=== PATIENT | female | born 1975 | race African-American/Black ===

== ENCOUNTER 2016-06-25 22:57 | Emergency (ER) | payer MEDICAID ==
[~2016-06-25] VITALS: Ht 152.4 cm; Wt 66.0 kg
[~2016-06-25 22:57] MED LIST: ALDA2525 PO; BUTA1CAP PO; CYPR4TAB PO; IMIT25TA PO; MOBI7.5T PO; OXYC1CAP PO
[2016-06-25 23:00] VITALS: BP 172/105; PULSE 68; RESP 16; TEMP 97.9; O2SAT 100
--- NOTE | 2016-06-25 23:41 | PD ---
HPI Chief Complaint: Injury Time Seen by Provider: 23:38 Travel History International Travel<30 days: No Contact w/Intl Traveler<30days: No Traveled to known affect area: No History of Present Illness HPI 41-year-old black female presents to emergency department with complaints of right foot pain after dropping a bag of candy is on her foot on . She states that she's been having persistent pain in the lateral forefoot. She denies any numbness, tingling or weakness. Pain is mild to moderate. Worse with weightbearing. Some relief with elevation. No other injury. PFSH Past Medical History Arthritis: No Asthma: No Autoimmune Disease: No Blood Disorders: No Anxiety: Yes Depression: Yes Heart Rhythm Problems: No Cancer: No Cardiovascular Problems: No High Cholesterol: No Chemotherapy: No Chest Pain: No Congestive Heart Failure: No COPD: No Cerebrovascular Accident: No Diabetes: No Diminished Hearing: No Endocrine: No GERD: Yes Glaucoma: No Genitourinary: No Headaches: Yes Hepatitis: No Hiatal Hernia: No Hypertension: Yes Kidney Stones: No Musculoskeletal: No Neurologic: No Psychiatric: Yes Reproductive: Yes Respiratory: No Migraines: Yes Myocardial Infarction: No Radiation Therapy: No Renal Failure: No Seizures: Yes Sickle Cell Disease: No Sleep Apnea: No Thyroid Disease: No Ulcer: No Tetanus Vaccination: < 5 Years ?: Not LMP: 06/21/16 : 5 Para: 3 Miscarriage: 1 : 0 Ovarian Cysts: Yes (SX MAR 2013) Past Surgical History Abdominal Surgery: No AICD: No Cardiac Surgery: No Section: Yes (X 1 (STILLBORN)) Ear Surgery: No Endocrine Surgery: No Eye Surgery: No Genitourinary Surgery: No Gynecologic Surgery: No Oral Surgery: No Pacemaker: No Thoracic Surgery: No Other Surgery: Yes () Social History Alcohol Use: No Tobacco Use: No Substance Use: No Allergies-Medications (Allergen,Severity, Reaction): Coded Allergies: Penicillin (Verified Adverse Reaction, Severe, NAUSEA, VOMITING - NO RASH , ITCHING OR SOB, 06/25/16) Reported Meds & Prescriptions Reported Meds & Active Scripts Active Diclofenac Sodium DR (Diclofenac Sodium) 75 Mg Tabdr 75 Mg PO BID Reported Oxycodone (Oxycodone HCl) Unknown Strength Cap Unknown Dose PO Q4H PRN Imitrex (Sumatriptan Succinate) 25 Mg Tab 25 Mg PO ONCE PRN If a satisfactory response has not been obtained at 2 hours, a second dose may be administered Cyproheptadine (Cyproheptadine HCl) 4 Mg Tab 4 Mg PO Q12HR Aldactazide (HCTZ/Spironolactone) 25-25 Mg Tab 1 Tab PO DAILY Fioricet (Ptkhlxnsdb-Ilowsotvmwmlj-Ttccvdpt) 50-300-40 Mg Cap 1 Cap PO Q6HR PRN Mobic (Meloxicam) Unknown Strength Tab Unknown Dose PO DAILY Review of Systems Except as stated in HPI: all other systems reviewed are Neg General / Constitutional: No: Fever, Chills HENT: No: Headaches, Sore Throat, Neck Pain Cardiovascular: No: Chest Pain or Discomfort, Palpitations Respiratory: No: Cough, Shortness of Breath Gastrointestinal: No: Nausea, Vomiting Musculoskeletal: Positive: Edema, Pain, No: Limited ROM Skin: No Rash, No Dryness Neurologic: No: Dizziness, Paresthesia Physical Exam Narrative GENERAL: This is a well-nourished, well-developed patient, in no apparent distress. SKIN: No rashes, ecchymoses or lesions. Warm and dry. HEAD: Atraumatic. Normocephalic. EYES: PERRL, EOMI, no discharge or injection. No scleral icterus. EARS: Clear NOSE: Nasal turbinates appear normal. THROAT: Mucosa pink and moist. Airway patent. NECK: Trachea midline. supple, moves head freely. LUNGS: Clear to auscultation. CV: Regular in rhythm. ABDOMEN: Soft nontender. EXT: No clubbing cyanosis or edema. Examination of the right lower extremity reveals pain along the fourth and fifth metatarsal. There is no edema, erythema or warmth. The skin is intact. No ecchymosis. She has intact sensation with good distal pulses. No pain in the toes, heel, Achilles or ankle. She ambulates with a normal gait. Data Data Last Documented VS Vital Signs Date Time Temp Pulse Resp B/P Pulse Ox O2 Delivery O2 Flow Rate FiO2 06/25/16 23:00 97.9 68 16 172/105 100 Orders Foot, Complete ([id number]) (06/25/16 23:37) MDM Medical Decision Making Medical Screen Exam Complete: Yes Emergency Medical Condition: Yes Medical Record Reviewed: Yes Interpretation(s) Right foot: Negative for acute fracture. Differential Diagnosis MDM: High Differential diagnoses: Fracture, sprain, strain, dislocation, contusion, neurovascular injury Narrative Course X-ray is negative for bony injury. This is right foot contusion Diagnosis Primary Impression: Contusion of right foot Qualified Code: S90.31XA - Contusion of right foot, initial encounter Patient Instructions: General Instructions Additional Instructions: Rest. Elevation. Ice packs for the next 3 days. Diclofenac. weight-bearing as tolerated. Follow-up with an orthopedist or your doctor in one week. Return to the ER if any problems Med/Other Pt SpecificInfo: Prescription(s) given Scripts Diclofenac Sodium DR 75 Mg Tabdr75 Mg PO BID #20 TAB Prov:Koki Smyth MD 06/25/16 Disposition: 01 DISCHARGE HOME Condition: Stable Jesu Tobin June 25, 2016 23:41
[2016-06-25] MEDS ORDERED: DICL75TA PO (23:42)
--- NOTE | 2016-06-25 23:54 | RADRPT ---
EXAM DATE/TIME: 06/25/2016 23:35 [facility] COMPARISON: FOOT RIGHT COMPLETE ([id number]), April 13, 2012, 22:41. INDICATIONS : Right foot pain. MEDICAL HISTORY : None. SURGICAL HISTORY : None. ENCOUNTER: Initial ACUITY: 1 day PAIN SCORE: 4/10 LOCATION: Right foot. FINDINGS: Three view examination of the right foot demonstrates no soft tissue swelling, dislocation, or fractu re. The tarsal bones appear intact. The interphalangeal and metatarsophalangeal joints are intact. The calcaneus is intact. Bony mineralization is normal. CONCLUSION: Unremarkable exam with no evidence of fracture or malalignment. Pepe Gaxiola MD on June 25, 2016 at 23:52 Board Certified Radiologist. This report was verified electronically.
== END 2016-06-26 00:12 | disposition home or self-care (01) ==
LOC: NEPK 22:57
DX: S90.31XA Contusion of right foot, initial encounter (principal); I10 Essential (primary) hypertension; W20.8XXA Other cause of strike by thrown, projected or falling object, initial encounter
CPT/HCPCS: 73630; 99283